=== PATIENT | female | born 1975 | race Caucasian/White ===

== ENCOUNTER 2017-08-17 21:19 | Emergency (ER) | payer OTHER ==
[2017-08-17 21:45] VITALS: BP 141/87
[2017-08-17] MEDS ORDERED: DOXYcycline CAP(*) 100 MG PO ONE (22:19)
--- NOTE | 2017-08-17 22:21 | UC ---
Skin Complaint HPI - HPI Summary HPI Summary: 2-3 DAYS OF INCREASING REDNESS ON LEFT SIDE OF ABDOMEN. PT STATES SHE HAD A PIMPLE THERE THAT SHE HAS BEEN PICKING AT. NO FEVER OR DRAINAGE. HAS A H/O MRSA. - History of Current Complaint Chief Complaint: UCSkin Time Seen by Provider: 08/17/17 21:36 Stated Complaint: SORE ON STOMACH Hx Obtained From: Patient Hx Last Menstrual Period: 2 WEEKS AGO Onset/Duration: Gradual Onset, Lasting Days, Still Present Timing: Constant Onset Severity: Mild Current Severity: Moderate Pain Intensity: 4 Pain Scale Used: 0-10 Numeric Character: Pain, Redness Aggravating Factor(s): Touch Alleviating Factor(s): Nothing Associated Signs & Symptoms: Positive: Tenderness. Negative: Fever - Allergy/Home Medications Allergies/Adverse Reactions: Allergies Allergy/AdvReac Type Severity Reaction Status Date / Time latex Allergy Severe Itching Verified 08/17/17 21:45 Penicillins Allergy Rash Verified 08/17/17 21:45 Sulfa (Sulfonamide Allergy Rash Verified 08/17/17 21:45 Antibiotics) Home Medications: Home Medications Citalopram TAB* [Celexa TAB*] 30 mg PO DAILY 08/17/17 [History Confirmed ] Ketoconazole 08/17/17 [History] Ketoconazole 2 % CREAM (NF) [Nizoral 2% CREAM (NF)] 08/17/17 [History] Pantoprazole TAB (NF) [Protonix TAB (NF)] 40 mg PO DAILY 08/17/17 [History Confirmed 08/17/17] buPROPion TAB* [Wellbutrin TAB*] 150 mg PO DAILY 08/17/17 [History Confirmed ] busPIRone TAB* [Buspar TAB *] 15 mg PO BID 08/17/17 [History Confirmed 08/17/17] metroNIDAZOLE [Metrocream] 08/17/17 [History] Review of Systems Constitutional: Negative Skin: Rash Respiratory: Negative Cardiovascular: Negative Gastrointestinal: Negative All Other Systems Reviewed And Are Negative: Yes PMH/Surg Hx/FS Hx/Imm Hx - Additional Past Medical History Additional PMH: H/O MRSA - Surgical History Surgical History: Yes Surgery Procedure, Year, and Place: gastric bypass 03/27/12. D and C x 2, 2 [facility] - Family History Known Family History: Positive: Hypertension - Social History Alcohol Use: Occasionally Substance Use Type: None Smoking Status (MU): Never Smoked Tobacco Physical Exam Triage Information Reviewed: Yes Appearance: Well-Appearing, No Pain Distress, Well-Nourished Vital Signs: Initial Vital Signs Temp 98.4 F 08/17/17 21:40 Pulse 81 08/17/17 21:40 Resp 16 08/17/17 21:40 BP 141/87 08/17/17 21:40 Pulse Ox 100 08/17/17 21:40 Vital Signs Reviewed: Yes Eyes: Positive: Conjunctiva Clear ENT: Positive: Hearing grossly normal Neck: Positive: Supple Respiratory: Positive: No respiratory distress, No accessory muscle use Cardiovascular: Positive: Pulses Normal Abdomen Description: Positive: Soft Musculoskeletal: Positive: No Edema Neurological: Positive: Alert Psychological: Positive: Age Appropriate Behavior Skin: Positive: Other - 13CM X 6CM AREA OF ERYTHEMA LEFT ABDOMEN WITH CENTRAL PUNCTUM WITH SCAB. MILDLY TENDER AND INDURATED. NO FLUCTUANCE OR DRAINAGE Course/Dx - Diagnoses Provider Diagnoses: CELLULITIS - LEFT ABDOMEN Discharge - Sign-Out/Discharge Documenting (check all that apply): Discharge/Admit/Transfer - Discharge Plan Condition: Stable Disposition: HOME Prescriptions: Doxycycline Monohydrate [Doxycycline Monohydrate] 1 cap PO BID #14 cap Fluconazole [Diflucan] 1 tab PO ONCE #2 tab Patient Education Materials: Cellulitis (ED) Referrals: [facility] Cabello [Primary Care Provider] - If Needed Additional Instructions: TAKE THE ANTIBIOTICS FOR THE FULL COURSE. IT MAY TAKE A DAY OR 2 BEFORE YOU NOTICE SIGNIFICANT IMPROVEMENT. WARM/HOT COMPRESSES AT LEAST 4 TIMES DAILY IBUPROFEN NEEDED FOR DISCOMFORT SEEK FOLLOW-UP IF YOU HAVE CONTINUED SPREADING REDNESS OF THE SKIN, PURULENT DRAINAGE, FEVER, INCREASED PAIN OR ANY OTHER CONCERNING SYMPTOMS. - Billing Disposition and Condition Condition: STABLE Disposition: Home
[2017-08-17] MEDS ORDERED: DOXYcycline CAP(*) 100 MG ONE (22:25)
== END 2017-08-17 22:40 | disposition home or self-care (01) ==
LOC: UCEAST 21:19
DX: L03.311 Cellulitis of abdominal wall (principal); Z86.14 Personal history of Methicillin resistant Staphylococcus aureus infection; Z98.84 Bariatric surgery status; Z88.0 Allergy status to penicillin; Z88.2 Allergy status to sulfonamides; Z91.040 Latex allergy status; Z82.49 Family history of ischemic heart disease and other diseases of the circulatory system
CPT/HCPCS: 99202; A9270-GY; G0463